=== PATIENT | male | born 1965 | race Caucasian/White ===

== ENCOUNTER → 2018-06-29 10:25 | Outpatient (CLI) | payer MEDICAID, SELFPAY ==
--- NOTE | 2018-06-29 10:38 | XR_ITS ---
XR hip RT 2-3V w/pelvis HISTORY: ITS.REASON: LUMBAGO W/SCIATICA RT SIDE ORDERING PHYSICIAN: Amy Rodriguez MD PATIENT AGE: 52 years COMPARISON: None FINDINGS: No fracture or dislocation is evident. No significant degenerative change. No lytic or blastic change. Unremarkable soft tissues IMPRESSION: Negative hip
--- NOTE | 2018-06-29 10:38 | XR_ITS ---
XR shoulder RT min 2V HISTORY: ITS.REASON: RT SHOULDER PAIN ORDERING PHYSICIAN: Amy Rodriguez MD PATIENT AGE: 52 years Comparison: None FINDINGS: No fracture or dislocation. No lytic or blastic change. There is normal mineralization. The joint spaces are well-preserved. No significant degenerative/arthritic changes. No erosive changes evident. IMPRESSION: Negative, no acute finding
--- NOTE | 2018-06-29 10:39 | XR_ITS ---
EXAM: XR lumbar spine min 4V HISTORY: Low back pain with right hip pain ITS.REASON: RT HIP PAIN ORDERING PHYSICIAN: Amy Rodriguez MD PATIENT AGE: 52 years COMPARISON: None FINDINGS: Normal alignment. No fracture or dislocation. No lytic or blastic change. There is minimal lumbar curvature convex left. Degenerative disc disease is present at L5-S1. IMPRESSION: Degenerative disc disease L5-S1
== END ==
PROVIDERS: PCP Nurse Practitioner Family; Visit Provider Family Medicine
DX: M25.511 Pain in right shoulder (principal); M54.41 Lumbago with sciatica, right side; M25.551 Pain in right hip
CPT/HCPCS: 72110; 73030; 73502

== ENCOUNTER → 2018-07-09 09:40 | Outpatient (CLI) | payer MEDICAID, SELFPAY ==
[2018-07-09 10:20] LABS: Basophils % 0.2 % (0.1-2.0); Eosinophils % 0.5 % (0.1-12.0); Hemoglobin 15.7 g/dL (14.1-18.0); Lymphocytes # 1.8 K/mm3 (0.7-4.5); Lymphocytes % 26.9 % (10-50); Mean Corpuscular HGB Conc 32.8 g/dL (31.8-35.4); Mean Corpuscular Volume 100.7 fl (80-94); Mean Platelet Volume 7.2 fl (7.4-10.4); Monocytes # 0.4 K/mm3 (0.1-1.0); Monocytes % 6.5 % (1.7-9.3); Neutrophils # 4.4 K/mm3 (1.8-7.8); Neutrophils % 65.9 % (37.0-80.0); Platelet Count 411 K/mm3 (142-424); Red Blood Count 4.76 M/mm3 (4.60-6.20); Red Cell Distribution Width 13.4 % (11.5-17.5); White Blood Count 6.7 K/mm3 (4.8-10.8)
[2018-07-09 11:13] LABS: Anion Gap 11.7 mEq/L (5-15); Blood Urea Nitrogen 6 mg/dL (7-18); Calcium 9.7 mg/dL (8.5-10.1); Carbon Dioxide 33 mmol/L (21.0-32.0); Chloride 100 mmol/L (98-107); Creatinine,Serum 0.71 mg/dL (0.70-1.30); Estimated Glomerular Filt Rate 117 ml/min (>60); GFR (African American) 142 ML/MIN (>60); Potassium 4.7 mmoL/L (3.5-5.1); Sodium 140 mmol/L (136-145)
[2018-07-09 11:38] LABS: Glucose 70 mg/dL (74-106)
== END ==
PROVIDERS: Visit Provider Surgery
DX: D17.1 Benign lipomatous neoplasm of skin and subcutaneous tissue of trunk (principal)
CPT/HCPCS: 36415; 80048; 85025; 93005